=== PATIENT | male | born 1980 | race African-American/Black ===

== ENCOUNTER 2017-09-10 14:39 | Emergency (ER) | payer OTHER ==
[~2017-09-10] VITALS: Ht 177.8 cm; Wt 111.1 kg
[2017-09-10] MEDS ORDERED: MOTR200T44 PO (14:52)
[2017-09-10 15:18] LABS: BASO % 0.4 % (0.0-1.0); EOS # 0.1 10^3/uL (0.0-0.50); EOS % 2.6 % (0.0-3.0); MEAN CORPUSCULAR HEMOGLOBIN 29.1 pg (27.0-33.0); MEAN CORPUSCULAR HGB CONC 32.9 g/dl (32.0-36.5); MEAN CORPUSCULAR VOLUME 88.5 fl (80.0-96.0); MONO # 0.3 10^3/uL (0.0-0.8); MONO % 7.2 % (0.0-5.0); NEUTROPHILS # 2.2 10^3/uL (1.8-7.7); NEUTROPHILS % 46.8 % (36.0-66.0); PLATELET COUNT, AUTOMATED 181 10^3/uL (150-450); RED CELL DISTRIBUTION WIDTH 12.5 % (11.5-14.5); WHITE BLOOD COUNT 4.6 10^3/uL (4.0-10.0)
[2017-09-10 15:51] LABS: BLOOD UREA NITROGEN 18 MG/DL (7-18); CARBON DIOXIDE LEVEL 24 MEQ/L (21-32); CHLORIDE LEVEL 110 MEQ/L (98-107); CREATININE FOR GFR 1.03 MG/DL (0.70-1.30); GLUCOSE, FASTING 88 MG/DL (70-105); POTASSIUM SERUM 4.1 MEQ/L (3.5-5.1); SODIUM LEVEL 143 MEQ/L (136-145)
--- NOTE | 2017-09-10 16:03 | REP ---
Chest two views HISTORY: Chest pain Comparison: None The lungs are clear. The heart is normal in size. The pulmonary vasculature is normal in appearance. The bony structure is intact. IMPRESSION: No acute disease. Signed by Rogerio Hogan MD 09/10/2017 03:42 P
[2017-09-10 16:10] LABS: ANION GAP 9 MEQ/L (8-16)
[2017-09-10] MEDS ORDERED: ISOVUE-370 76% 100ML VIAL (Q9967) As Ordered ONE (16:36)
--- NOTE | 2017-09-10 17:30 | REP ---
CT PULMONARY ANGIOGRAM: 09/10/2017. Clinical history: Chest pain, evaluate for possible emboli. Comparison: Chest x-ray 09/10/2017. Technique: The patient received a bolus of 75 ml of Isovue 370 with scanning through the chest with our pulmonary embolism protocol. Thick slab coronal and sagittal reconstructions are provided. Findings: Lungs are well inflated. There are dependent atelectatic changes in the bilateral lower lobes, right slightly greater than left. A few ground-glass opacities are seen in the deep sulcus, right lower lobe posteriorly, right greater than left. No dense consolidation with air bronchograms, pleural effusion, pleural-based mass or calcified pleural plaques. The upper lobes and the right middle lobe were unremarkable. The heart is not enlarged. There is no pericardial thickening or effusion. No hiatal hernia. The thoracic aorta is without aneurysm or dissection. No pathologic sized mediastinal or hilar adenopathy is noted. Tracheal airway intact. The main, right and left pulmonary arteries within the mediastinum show no filling defect to suggest thrombus. The lobar, segmental and subsegmental arteries are also without filling defect or vessel cutoff. Tracheal airway intact. No axillary or supraclavicular mass. Small lymph nodes are seen in both axilla, unremarkable. No supraclavicular lesion. The bone windows show the sternum, manubrium, medial clavicles, humeral heads, glenohumeral joints, scapula, visualized ribs and the thoracic spine without compression fracture. There are marginal osteophytes, greatest in the lower thoracic region anteriorly. In the upper abdomen, visualized portions of liver and spleen, adrenal glands and collapsed portion of stomach unremarkable. Impression: 1. No CT evidence of pulmonary thromboembolism in the central, lobar, segmental and visible subsegmental arteries. No vessel cutoff or filling defect. 2. There is no infiltrate or effusion. 3. Some basilar subsegmental atelectatic and ground-glass atelectatic change noted bilaterally, right greater than left. 4. No thoracic aortic aneurysm or dissection. Bones without acute finding. Signed by Jeffrey Saavedra MD 09/11/2017 05:04 P
[2017-09-10] MEDS ORDERED: NS 1,000 ML IV ONE (17:45)
--- NOTE | 2017-09-10 19:15 | ECGEPIP ---
Stationary ECG Study [facility] - ED Test Date: 2017-09-10 Pat Name: NU CORONADO Department: Room: - Gender: M Speech Language Specialist: JT : 1980 Requested By: SAMANTA Vitale Order Number: [id number] Reading MD: Coy Freeman Measurements Intervals [place] Rate: 64 P: 24 AK: 147 QRS: 1 QRSD: 99 T: 15 QT: 392 QTc: 404 Interpretive Statements SINUS RHYTHM NSTTW ABNORMALITIES NO PRIORS Electronically Signed On 09-10-2017 19:15:23 EDT by Coy Freeman
[2017-09-10 20:07] VITALS: BP 99/63
--- NOTE | 2017-09-11 05:40 | ECGEPIP ---
Stationary ECG Study [facility] - ED Test Date: 2017-09-10 Pat Name: NU CORONADO Department: Room: - Gender: M [employer] Collection Clerk: JT : 1980 Requested By: SAMANTA Vitale Order Number: [id number] Reading MD: Coy Freeman Measurements Intervals [place] Rate: 55 P: 7 VT: 145 QRS: 6 QRSD: 101 T: 11 QT: 421 QTc: 403 Interpretive Statements SINUS BRADYCARDIA POSSIBLE INCOMPLETE RIGHT BUNDLE BRANCH BLOCK NSTTW ABNORMALITIES Electronically Signed On 09-11-2017 5:39:44 EDT by Coy Freeman
== END 2017-09-10 20:24 | disposition home or self-care (01) ==
LOC: M ED 14:39 → EDBD 14:39 → M ED 20:24
DX: R07.9 Chest pain, unspecified (principal); Z82.49 Family history of ischemic heart disease and other diseases of the circulatory system; F17.210 Nicotine dependence, cigarettes, uncomplicated
CPT/HCPCS: 36415; 71020; 71275; 80048; 81001; 82550; 82553; 85025; 93005; 93041; 94760; 99285; Q9967

== ENCOUNTER → 2018-03-18 | Outpatient (CLI) | payer OTHER | LOC: M RAD 09:24 | DX: M25.711 Osteophyte, right shoulder (principal); M19.011 Primary osteoarthritis, right shoulder; M25.511 Pain in right shoulder | CPT/HCPCS: 73030 ==

== ENCOUNTER → 2018-12-04 | Outpatient (CLI) | payer OTHER ==
[~2018-12-04] MED LIST: MOTR200T44 PO
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
== END ==
LOC: M RAD 09:38
PROVIDERS: ATTEND Surgery
DX: M51.36 Other intervertebral disc degeneration, lumbar region (principal); M43.17 Spondylolisthesis, lumbosacral region; M54.5 Low back pain